=== PATIENT | male | born 1970 | race Caucasian/White ===

== ENCOUNTER 2018-10-27 09:07 | Emergency (ER) | payer OTHER ==
[~2018-10-27] VITALS: Ht 162.6 cm; Wt 72.6 kg
[2018-10-27 09:10] VITALS: BP 127/81
--- NOTE | 2018-10-27 09:11 | NUR ---
Patient ambulated to bed 11. RN evaluating patient at bedside.
--- NOTE | 2018-10-27 09:12 | NUR ---
Dr. Simental evaluating patient at bedside.
--- NOTE | 2018-10-27 09:17 | NUR ---
Called code brain.
--- NOTE | 2018-10-27 09:19 | NUR ---
The patient, accompanied by RN and EMT, was taken to CT scan via gurney by [facility].
[2018-10-27] MEDS ORDERED: NACL 0.9% 1,000 ML IV ONE (09:20)
--- NOTE | 2018-10-27 09:28 | NUR ---
returned from ct via [facility] with ZARA Ramirez
[2018-10-27 09:50] LABS: BASOPHILS % (AUTO) 0.5 % (0.0-2.0); EOSINOPHILS % (AUTO) 0.4 % (0.0-4.0); HEMATOCRIT 42.5 % (36-52); HEMOGLOBIN 14.5 g/dL (12.0-18.0); LYMPHOCYTES # (AUTO) 1.1 K/uL (2.0-11.5); MEAN CORPUSCULAR HEMOGLOBIN 30 pg (27-31); MEAN CORPUSCULAR HGB CONC 34 g/dL (33-37); MEAN CORPUSCULAR VOLUME 87.3 fL (80-94); MONOCYTES # (AUTO) 0.5 K/uL (0.8-1.0); MONOCYTES % (AUTO) 6.2 % (1.7-9.3); NEUTROPHILS % (AUTO) 79.9 % (42.2-75.2); PLATELET COUNT (AUTO) 227 K/uL (140-450); RED BLOOD CELL COUNT(AUTO) 4.86 MIL/uL (4.20-6.10); RED CELL DISTRIBUTION WIDTH 13.4 % (11.6-13.7); WHITE BLOOD COUNT (AUTO) 8.8 K/uL (4.8-10.8)
--- NOTE | 2018-10-27 09:58 | NUR ---
PT. C/O DIZZINESS AND WEAKNESS ON HIS WAY TO WORK. HE STATES THAT HE HAS A HISTORY OF HIGH BLOOD PRESSURE, RIGHT CVA. DEFICITS CLEAR. PER HIS DOCTOR'S ORDERS, HE NO LONGER TAKES MEDICATIONS FOR SEIZURES A FEW MONTHS AGO. PT. EXHIBITS INTERMITTENT APRAXIA. HE ALSO C/O LEFT- SIDED THROBBING, PULSATING HEADACHE.
[2018-10-27 10:12] LABS: PROTHROMBIN TIME 9.8 secs (10.8-13.4)
[2018-10-27 10:16] VITALS: BP 111/70
--- NOTE | 2018-10-27 10:18 | NUR ---
Patient to be transferred to [facility]. Is being transferred due to . Receiving facility has accepting physician and available space. ER physician has signed transfer form. Patient or responsible republican has agreed to transfer and signed form. Patient belongings inventoried and will be sent with patient. Copy of nursing notes, lab reports, EKG, Physicians Orders and X-rays to be sent with patient. Report called to at receiving facility. ambulance service has been called for transfer. ETA is .
[2018-10-27 10:22] LABS: POTASSIUM 4.3 mmol/L (3.5-5.1)
[2018-10-27 10:23] LABS: ALBUMIN 4.4 g/dL (3.4-5.0); ANION GAP 15.3 (8-16); CREATININE 0.9 mg/dL (0.7-1.3); TOTAL BILIRUBIN 0.5 mg/dL (0.0-1.0)
== END 2018-10-27 10:18 | disposition short-term general hospital (02) ==
LOC: MED 09:07
DX: I63.9 Cerebral infarction, unspecified (principal); I10 Essential (primary) hypertension; Z88.0 Allergy status to penicillin
CPT/HCPCS: 36415; 70450; 80053; 82948; 85025; 85610; 85730; 99285

== ENCOUNTER 2022-06-16 14:18 | Emergency (ER) | payer BC, OTHER ==
[~2022-06-16] VITALS: Ht 162.6 cm; Wt 75.7 kg
[2022-06-16 14:24] VITALS: BP 131/91
[2022-06-16 16:54] VITALS: BP 130/91
--- NOTE | 2022-06-16 16:54 | NUR ---
Patient discharged with v/s stable. Written and verbal after care instructions given. Patient verbalized understanding. Ambulatory with steady gait. All questions addressed prior to discharge. Advised to follow up with PMD.
--- NOTE | 2022-06-16 16:55 | NUR ---
The patient's care was reviewed and supervised by Viktoria Chaidez, RN, RN.
== END 2022-06-16 16:54 | disposition home or self-care (01) ==
LOC: MED 14:18
DX: S60.111A Contusion of right thumb with damage to nail, initial encounter (principal); I10 Essential (primary) hypertension; Z88.0 Allergy status to penicillin; Z86.73 Personal history of transient ischemic attack (TIA), and cerebral infarction without residual deficits; W22.8XXA Striking against or struck by other objects, initial encounter; Y93.89 Activity, other specified; Y92.89 Other specified places as the place of occurrence of the external cause; Y99.8 Other external cause status
CPT/HCPCS: 11740; 73140; 99284